=== PATIENT | male | born 1970 | race Caucasian/White ===

== ENCOUNTER 2019-12-27 11:19 | Inpatient (IN) ==
--- NOTE | 2019-12-27 11:49 | EKG Report ---
Test Performed on : 12/27/2019 11:42:22 AM Test Reason : chest pain Blood Pressure : / mmHG Vent. Rate : 091 BPM Atrial Rate : 091 BPM P-R Int : 118 ms QRS Dur : 092 ms QT Int : 354 ms P-R-T Axes : 052 050 029 degrees QTc Int : 435 ms Sinus rhythm. with marked sinus arrhythmia. with occasional premature ventricular complexes. Otherwise normal ECG When compared with ECG of 26-DEC-2019 18:05, (Unconfirmed) premature ventricular complexes. are now present Unconfirmed Result
[2019-12-27 12:14] LABS: BASO# 0.02 X1000 (0.0-0.2); BASO% 0.1 % (0.0-0.8); HEMATOCRIT 46.6 % (42.0-52.0); HEMOGLOBIN 16.1 g/dL (14.0-18.0); LYMPH# 0.45 X1000 (1.2-3.4); LYMPH% 1.7 % (20.5-51.1); MCH 32.5 PG (27-31); MCHC 34.5 g/dL (33-37); MONO% 6.8 % (1.7-9.3); MPV 9.6 FL (7.4-10.4); PLT 359 X1000 (130-400); RBC 4.96 XMIL (4.7-6.1); RDW 12.9 % (11.5-14.5); WBC 26.61 X1000 (4.8-10.8)
[2019-12-27 12:36] LABS: AGAP 19; ALBUMIN 3.6 g/dL (3.5-5.0); ALKALINE PHOSPHATASE 114 U/L (32-122); AMYLASE 310 U/L (20-200); BUN 17 mg/dL (8-22); CALCIUM 8.8 mg/dL (8.8-10.2); CHLORIDE 96 mmol/L (98-107); COSMO 272; CREATININE 1.2 mg/dL (0.7-1.2); ESTIMATED GFR > 60; GLUCOSE 146 mg/dL (70-104); GOT 34 U/L (10-34); GPT 25 U/L (10-44); POTASSIUM 3.7 mmol/L (3.5-5.1); SODIUM 134 mmol/L (136-145); TCO2 19 mmol/L (25-35); TOTAL BILIRUBIN 0.58 mg/dL (0.20-1.00); TOTAL PROTEIN 7.1 g/dL (6.3-8.3)
[2019-12-27 12:43] LABS: LIPASE 584 U/L (13-60)
[2019-12-27] MEDS ORDERED: ZOFRAN IV ONE (13:47)
[2019-12-27] MEDS ORDERED: MORPHINE IV ONE (13:47)
[2019-12-27] MEDS ORDERED: NS 500 ML IV ONE (13:47)
[2019-12-27] MEDS ORDERED: NS 1,000 ML IV ONE ×2 (13:49→16:29)
[2019-12-27] MEDS ORDERED: MAGNESIUM SULFATE 2 GM/S.W.I. 2 GM/50 ML IVPB IV ONE (15:09)
--- NOTE | 2019-12-27 15:37 | Diag Imaging Result Doc PS360 ---
EXAM: CT ABDOMEN/PELVIS W/O CONTRAST INDICATION: pancreatitis TECHNIQUE: This exam was performed using automated exposure control, adjustment of mA or kV according to patient size, and/or use of iterative reconstruction technique. COMPARISON: None. FINDINGS: The gallbladder appears normal. The common bile duct is somewhat prominent measuring up to 9 mm in diameter. There is no intrahepatic biliary dilatation. The liver is unremarkable. Spleen appears normal. There is extensive inflammatory stranding surrounding the entire pancreas consistent with acute pancreatitis. Nonloculated free fluid is seen around the pancreas. No definite pancreatic abscess is identified given the limitations of an unenhanced CT. The adrenal glands are unremarkable. There are multiple nonobstructing intrarenal stones bilaterally. There is no hydronephrosis. There are no ureteral stones. There is a 2.3 cm nodule at the lower pole of the right kidney that is slightly lower in density than the adjacent renal parenchyma. Although nonspecific on an unenhanced study, this probably represents a cyst containing blood products or proteinaceous debris. The urinary bladder is nondistended. Urinary bladder wall appears somewhat thickened. This is probably due to underdistention. The appendix is normal. There are a few diverticula associated with the hepatic flexure of the colon. There is no evidence of diverticulitis. There is no focal bowel wall thickening and no bowel obstruction identified. No free abdominal gas is identified. IMPRESSION: 1.Acute pancreatitis as described. 2.Normal-appearing gallbladder but possible mild prominence of the common bile duct. 3.Other incidental/nonacute findings detailed above. Electronically signed by Ran Batista 12/27/2019 3:35 PM
[2019-12-27] MEDS: DEMEROL IV PRN ×2 (16:13→20:23)
[2019-12-27] MEDS: ZOSYN 3.375 GM in NS 50 ML IV SCH ×2 (16:17→20:24)
--- NOTE | 2019-12-27 16:19 | Diag Imaging Result Doc PS360 ---
EXAM: CHEST-1 VIEW HISTORY: Sepsis Protocol TECHNIQUE: Single view COMPARISON: 12/26/2019 FINDINGS: The lungs are well expanded. The heart is not enlarged. The vessels are not distended. There are no infiltrates. No effusion identified. IMPRESSION: No pneumonia. Electronically signed by Deondre Vazquez 12/27/2019 4:17 PM
[2019-12-27] MEDS ORDERED: NS 1,000 ML IV SCH (17:42)
[2019-12-27 18:49] LABS: URINE SOURCE CLEAN CATCH
--- NOTE | 2019-12-27 18:51 | Diag Imaging Result Doc PS360 ---
EXAM: US GB < RUQ (LIMITED) HISTORY: possible CBD dilation on CT scan TECHNIQUE: Right upper quadrant ultrasound COMPARISON: CT performed earlier FINDINGS: The aorta, inferior vena cava, and pancreas are all predominantly obscured. There is fatty infiltration of the liver. No ascites in the right upper quadrant. Normal gallbladder. No stones. The common bile duct measures 10 mm. Normal right kidney. No hydronephrosis. IMPRESSION: 1.Fatty infiltration of the liver 2.Dilated common bile duct Electronically signed by Denodre Vazquez 12/27/2019 6:48 PM
[2019-12-27 18:52] LABS: BILIRUBIN URINE NEGATIVE (NEGATIVE); BLOOD URINE NEGATIVE (NEGATIVE); COLOR YELLOW; GLUCOSE URINE NEGATIVE (NEGATIVE); KETONE URINE NEGATIVE (NEGATIVE); LEUKOCYTES URINE NEGATIVE (NEGATIVE); NITRITE URINE NEGATIVE (NEGATIVE); PROTEIN URINE TRACE mg/dL (NEGATIVE); SP GRAVITY URINE 1.024; TURBIDITY URINE HAZY (CLEAR); UR EPITHELIAL CELLS <10 /HPF (<10); URINE BACTERIA NEGATIVE /HPF; URINE RBC <10 /HPF (<10); URINE WBC <10 /HPF (<10); UROBILINOGEN URINE NORMAL (NORMAL)
--- NOTE | 2019-12-27 19:40 | HISTORY AND PHYSICAL ---
ADDENDUM: I have seen and examined Mr. Batista today. Mr. Batista referred to have come to the emergency room yesterday because of some epigastric chest discomfort. He was evaluated and sent home. He said on his way home, he went to [employer] and bought something from there. Since then, after he had the first bite, he started just throwing up it away. He still went home, threw up multiple times, but then went to sleep, woke up this morning with excruciating epigastric generalized abdominal pain. Came to the emergency room where he was evaluated and found on imaging studies to have acute inflammation of the pancreas, with lipase and amylase also elevated. We have been consulted for admission for acute pancreatitis. PHYSICAL EXAMINATION: VITAL SIGNS: Blood pressure is 128/80, pulse is 100, respirations 18, temperature 97.9 degrees. GENERAL: Mr. Batista is a 49-year-old male. He is in bed in no distress. HEENT: Mucosa is pink and moist. Anicteric. Acyanotic. NECK: Supple. He does have some residual tremors upon extension of his hands. ABDOMEN: Exam is remarkably tender everywhere, most specifically to the epigastrium and the left upper quadrant. There is no rebound, but there is some guarding. Bowel sounds are present. EXTREMITIES: No pedal edema. BUSINESS TECHNOLOGY ANALYST: Patient is awake, alert, and oriented. LABORATORY DATA: Has been reviewed. He has leukocytosis. He also has mild high gap metabolic acidosis. Sodium is slightly low. Magnesium is 1. Amylase and lipase are elevated as well as plasma lactate; however, AST and ALT are within normal range. The patient's CT scan of the abdomen and pelvis shows an acute pancreatitis, normal appearing gallbladder; however, there is a mention of prominence of the CBD. ASSESSMENT: 1. Acute pancreatitis, presumably alcohol induced; however, the CAT scan also mention of prominence of the common bile duct. Unsure if patient might have had a transient passage of a gallbladder stone that could have caused this. His liver enzymes, however, are within normal range, so I think this is probably more of alcohol related disease than gallbladder. He is getting a limited right upper quadrant ultrasound. We will also get his triglyceride levels to rule out other possible etiologies. 2. Alcohol use and abuse. Patient has been counseled. 3. Hypomagnesemia. We will replace. 4. Leukocytosis. I think this is most likely reactive to the ongoing acute pancreatitis. 5. Mild high anion gap metabolic acidosis, most likely from lactic acidosis. We will continue intravenous hydration. Please refer to the details of the History and Physical that has been dictated by the INFORMATION SECURITY ANALYST. I have discussed the plan with her. I have also discussed my findings and plan with Mr. Batista today. cc: Inocente Jimenez MD
--- NOTE | 2019-12-27 19:59 | HISTORY AND PHYSICAL ---
PRIMARY CARE PROVIDER: Dr. Méndez. CHIEF COMPLAINT: Epigastric pain, nausea, vomiting. HISTORY OF PRESENT ILLNESS: Mr. Batitsa is a 49-year-old male with a past medical history of hypertension and fibromyalgia. He reports yesterday he came to the ED with chest pain. It subsequently subsided. He was ruled out for AL. After leaving here, he went and ate at the [employer]. After that, he started having nausea and vomiting. He threw up a dozen times or more. He immediately started having again this pain in his epigastric region that has been unrelenting. He reports a low-grade fever and chills, and inability to urinate. Initial workup in the ED did show an elevated amylase and lipase as well as a white count of 26 and a positive lactate. Follow up with the abdomen and pelvis CT does show acute pancreatitis with mild prominence of the common bile duct and hypomagnesemia. He is going to be aggressively IV hydrated. He was given a dose of IV Rocephin and initiated on antiemetics and pain regimen, made NPO. He will be started on lactated Ringer's. We have ordered an ultrasound of the right upper quadrant and a consult for GI. He is currently taking hydrochlorothiazide and ASHLEY inhibitor. He also reports he drinks about a 6 six-pack, he would estimate about 3 weeks out of a month. His last drink was about a week and a half ago. PAST MEDICAL HISTORY: Per HPI. PAST SURGICAL HISTORY: Left carpal tunnel. SOCIAL HISTORY: He does have a significant other that he has lived with for quite some time. They are pretty much common-law . He does have an 18-year-old son. He has 4 small dogs. He does dip a half can of chew tobacco a day. He does drink about a 6 pack of beer per day about 3 weeks out of the month if he had to estimate. He reports his last drink was the weekend before last. 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 No illicit drugs. REVIEW OF SYSTEMS: Twelve-point review of systems completely negative except for those mentioned in HPI. ALLERGIES: Mobic causes swelling. HOME MEDICATIONS: 1. Norvasc 10 mg p.o. daily. 2. Lotensin 40 mg p.o. daily. 3. Hydrochlorothiazide 25 mg p.o. daily. 4. [place] 10 one each p.o. t.i.d. p.r.n. 5. Desyrel 50 mg p.o. at bedtime. PHYSICAL EXAMINATION: VITAL SIGNS: Temperature is 97.9 degrees, heart rate 111, respirations 20, blood pressure 157/93, O2 is 93% on room air. GENERAL: Mr. Batista is a 49-year-old male who is sitting up on the stretcher. He does appear to be in some discomfort, but in no acute distress. HEENT: Atraumatic, normocephalic. PERRL. NECK: Supple. Trachea midline. CARDIOVASCULAR: S1, S2 appreciated. No murmurs, gallops, or rubs noted. He is tachycardic. RESPIRATORY: Lung sounds clear bilaterally. ABDOMEN: Somewhat distended, tender all 4 quadrants. Positive bowel sounds. EXTREMITIES: Lower extremities negative for edema. NEUROLOGIC: No focal deficits noted. DIAGNOSTIC DATA: Abdomen and pelvis CT: Acute pancreatitis, mild prominence of the common bile duct. LABORATORY DATA: White count 26, hemoglobin and hematocrit 16 and 46, platelet count is 359,000. Sodium 134, potassium 3.7, BUN 17, creatinine 1.2 blood glucose is 146, magnesium 1. Troponin less than 6. C-reactive protein 0.78. Amylase is 310, lipase is 584. Lactate was 3.4. ASSESSMENT AND PLAN: 1. Acute pancreatitis, probably secondary to alcohol use. However, patient is on a ASHLEY inhibitor and hydrochlorothiazide. Will have to continue with aggressive IV hydration with lactated Ringer's, pain control and antiemetics. Consult Gastroenterology. We will get a right upper quadrant ultrasound given that he did have a prominence of his common bile duct, to rule out any gallbladder issues. 2. High gap metabolic acidosis. We will continue with lactated Ringer's. 3. Hypomagnesemia 1.0. He is given 2 g of magnesium. We will recheck his magnesium and continue to replenish p.r.n. 4. Leukocytosis, possibly reactive. CT does not show any necrosis of the pancreas. However, he was having some fever and chills. We did initiate antibiotics. He did have a positive lactate. However, he is severely dehydrated. We will continue with aggressive IV hydration. Stop antibiotics when appropriate. 5. Alcohol use. Given his acute pancreatitis, we will need to continue discussions about abstinence. 6. Hypertension, stable. 7. Fibromyalgia. We will continue with p.r.n. Demerol. Further recommendation to follow physician evaluation, laboratory and diagnostic data. Dictated by DIONE Martin for Inocente Jimenez MD cc: MD Ken Patel MD Michael Kelso, MD
[2019-12-27] MEDS: ZOFRAN IV PRN (20:23)
[2019-12-27] MEDS: DILAUDID IV PRN (23:28)
[2019-12-28] MEDS: LR 1,000 ML IV SCH ×8 (02:01→22:13)
[2019-12-28] MEDS: DILAUDID IV PRN ×7 (02:47→21:37)
[2019-12-28] MEDS: ZOSYN 3.375 GM in NS 50 ML IV SCH (02:47)
[2019-12-28] MEDS: ZOFRAN IV PRN (02:47)
[2019-12-28 08:04] LABS: HEMATOCRIT 43.7 % (42.0-52.0); HEMOGLOBIN 14.9 g/dL (14.0-18.0); IMM GRAN# 0.05 X1000 (0.0-0.04); IMM GRAN% 0.3 % (0.0-0.5); LYMPH# 0.44 X1000 (1.2-3.4); LYMPH% 2.3 % (20.5-51.1); MCH 32.5 PG (27-31); MCHC 34.1 g/dL (33-37); MCV 95.2 FL (81-99); MONO# 1.31 X1000 (0.11-0.59); MONO% 6.7 % (1.7-9.3); MPV 9.8 FL (7.4-10.4); NEUT# 17.63 X1000 (1.4-6.5); NEUT% 90.7 % (42.2-75.2); PLT 261 X1000 (130-400); RBC 4.59 XMIL (4.7-6.1); RDW 12.9 % (11.5-14.5); WBC 19.43 X1000 (4.8-10.8)
[2019-12-28 08:36] LABS: AGAP 13; ALB/GLOB RATIO 0.9; ALBUMIN 3.2 g/dL (3.5-5.0); ALKALINE PHOSPHATASE 103 U/L (32-122); BUN 19 mg/dL (8-22); CHLORIDE 102 mmol/L (98-107); COSMO 277; CREATININE 1.2 mg/dL (0.7-1.2); ESTIMATED GFR > 60; GLUCOSE 112 mg/dL (70-104); GOT 32 U/L (10-34); GPT 20 U/L (10-44); MAGNESIUM 1.7 mg/dL (1.5-2.7); POTASSIUM 3.7 mmol/L (3.5-5.1); SODIUM 137 mmol/L (136-145); TCO2 22 mmol/L (25-35); TOTAL BILIRUBIN 1.34 mg/dL (0.20-1.00); TOTAL PROTEIN 6.6 g/dL (6.3-8.3)
[2019-12-28 08:37] LABS: CHOLESTEROL 122 mg/dL (0-200); HDL 80 mg/dL (35-55); LDL 30 mg/dL; TRIGLYCERIDES 60 mg/dL (39-160); VLDL 12 mg/dL
[2019-12-28 10:13] LABS: BANDS 1 % (0-1); LYMPHS 2 % (21-51); MONO 2 % (1-9); SEGS 95 % (42-75)
--- NOTE | 2019-12-28 11:42 | GASTROENTEROLOGY CONSULTATION ---
DATE: 12/28/2019 REASON FOR CONSULT: Acute pancreatitis. HISTORY OF PRESENT ILLNESS: Mr. Batista is a 49-year-old, male with a past medical history of hypertension, fibromyalgia, history of alcohol abuse and chewing tobacco. The patient mentioned that he was here in the hospital on 12/26/2019 with complaints of chest pain and with feeling of pressure in the chest. He came to the ER and then was sent back. The patient went to [facility] and he said after he started eating, he immediately started to have nausea, vomiting, abdominal pain, and he threw up everything that he had eaten, and his pain was around the epigastric area, which he mentioned that it was almost 10/10 with excruciating pain. The patient has denied noticing any blood in his vomit. He mentioned having fever, chills, shortness of breath and some sweating with hot flashes. The patient does have extensive history of drinking 6 packs of beer every 2 to 3 days and sometimes he drinks Fireball liquor, which he said it is bourbon. The patient also has a history of fibromyalgia and is on [place] 10 mg 1 tablet 3 times a day as needed. PAST MEDICAL HISTORY: Hypertension, fibromyalgia. PAST SURGICAL HISTORY: Left carpal tunnel. ALLERGIES: The patient is allergic to meloxicam. SOCIAL HISTORY: The patient is single, lives with his girlfriend for the last 15 years. He has 1 kid. He works 3rd shift at [employer]. He drinks 6 packs of beer every 2 to 3 days and he also drinks Fireball liquor, which he mentioned that it is nothing but bourbon. The patient denied smoking, but he says that he dips half a can of tobacco a day. He has denied having any illicit drugs. FAMILY HISTORY: His dad had cancer and mom had heart problems. HOME MEDICATIONS: 1. Lotensin 40 mg p.o. daily. 2. Hydrocodone/acetaminophen 1 tablet 3 times a day as needed. 3. Trazodone 50 mg p.o. at bedtime. 4. Amlodipine 10 mg p.o. daily. 5. Hydrochlorothiazide 25 mg p.o. daily. REVIEW OF SYSTEMS: As per HPI. Otherwise, 12 point review of system is negative. PHYSICAL EXAMINATION: Vital Signs: Temperature 98.4 degrees, pulse 115, respirations 22, blood pressure 156/98, oxygen saturation is 95% on room air. The patient's weight is 175 pounds. BMI is 29.1 kg/m2. General: He is alert, oriented x3. Answering questions appropriately and in no acute distress. HEENT: Pale conjunctivae. No icterus. PERRL. Neck: Supple. Lungs: Clear to auscultation. Cardiovascular: Patient is tachycardic and tachypneic. Abdomen: Soft. Tender in the epigastric area. Nondistended. Active bowel sounds heard in all 4 quadrants. Extremities: No clubbing, no cyanosis, no edema. Pedal pulses 2+ present bilaterally. Neurologic: Alert and oriented x3. Nonfocal. Cranial nerves 2-12 grossly intact. LABORATORY DATA: WBCs are 19.43, RBC is 4.59, hemoglobin is 14.9, hematocrit is 43.7, platelet count is 261,000. Sodium 137, potassium 3.7, chloride 102, carbon dioxide 22, anion gap is 13, BUN 19, creatinine is 1.2, glucose is 112, calcium is 8.0, magnesium is 1.7, total bilirubin 1.34, AST 32, ALT 20, alkaline phosphatase 103, albumin is 3.2, triglycerides are 60, cholesterol is 122, LDL is 30, VLDL is 12, HDL is 80, plasma lactate is 2.7. His urinalysis has shown that he has got trace of protein. IMAGING: Abdominal ultrasound showed fatty infiltration of the liver, dilated common bile duct. Chest x-ray has shown no pneumonia. Abdomen and pelvis CT has shown acute pancreatitis, normal appearing gallbladder, but possible mild prominence of common bile duct. IMPRESSION AND PLAN: 1. Pancreatitis. 2. Leukocytosis. 3. Abdominal pain. 4. Epigastric pain. 5. Nausea and vomiting. 6. Alcohol abuse. 7. Tobacco abuse. PLAN: Mr. Batista is a 49-year-old, male with a history of hypertension and fibromyalgia. GI has been consulted for his acute pancreatitis. The patient's abdomen and pelvis CT has shown that he has got acute pancreatitis and his abdominal ultrasound showed that he has fatty infiltration of the liver and dilated common bile duct. The patient is currently on antiemetics, Zofran for his nausea and vomiting. He is receiving IV fluid, lactated Ringer's at 200 mL/h, and for his pain, he is on Dilaudid 1 mg every 3 hours p.r.n. as needed by PCP. We will continue to provide supportive care to the patient, continue him with his IV fluids and antiemetics, and follow the plan of care per PCP. This plan was discussed with Dr. Link. Please call us for any further questions or concerns. Dictated by DIONE March for Stiven Link MD [facility]
--- NOTE | 2019-12-28 19:59 | PROGRESS NOTE ---
DATE: 12/28/2019 SUBJECTIVE: I have seen and examined Mr. Batista today. Mr. Batista refers to be feeling a whole lot better. He said his abdominal pain is now about 4/10. OBJECTIVE: Vital signs: Blood pressure is 160/98, pulse of 114, respiration is 18, temperature 98.5 degrees. General: Mr. Batista is a 48-year-old gentleman. He is in bed no distress. Mucosa is pink and moist. Anicteric. Acyanotic. Neck: Supple. Chest: Good air entry bilaterally. There were no crepitations, no rhonchi. Cardiovascular: Regular rate and rhythm. No murmurs, no rubs, no gallops Gastrointestinal: Abdomen is soft, minimally tender in the mid epigastrium but no rebound, no guarding. Bowel sounds present. Extremities: No pedal edema. CORPORATE SALES MANAGER: Patient is awake, alert, and oriented. There is no focal deficit. LABORATORY DATA: Has been reviewed. Patient WBC is down to 19.43, hemoglobin is 14.9, platelet count of 261,000. Chemistry is also reviewed. C-reactive protein is 95.30. ASSESSMENT: 1. Acute pancreatitis presumably alcohol induced. The patient's abdominal pain seems to be getting better. We will continue with pain management, IV fluids. We will start the patient on ice chips today. 2. Alcohol use and abuse. The patient has been counseled. He is on p.r.n. medication for possible withdrawal. 3. Electrolyte abnormality. We will continue to replace. 4. Reactive leukocytosis. 5. Gap acidosis, improved. 6. Fatty liver disease, most likely from alcohol use and abuse. Patient has been notified. 7. Dilated common bile duct. The patient's CBD measures about 10 mm on the right upper quadrant ultrasound. There was no stone identified. Unsure if the patient might have passed a little stone that could have caused his acute pancreatitis. GI has been consulted. cc: Inocente Jimenez MD
[2019-12-28] MEDS: PEPCID IV SCH (22:13)
[2019-12-28] MEDS: LABETALOL IV PRN (23:13)
[2019-12-29] MEDS: DILAUDID IV PRN ×8 (00:22→23:10)
[2019-12-29] MEDS: LR 1,000 ML IV SCH ×4 (02:47→21:37)
[2019-12-29] MEDS: PEPCID IV SCH ×2 (08:51→21:19)
[2019-12-29] MEDS: SODIUM CHLORIDE 0.9% INJ SCH (08:51)
[2019-12-29] MEDS: LABETALOL IV PRN (13:44)
[2019-12-29] MEDS: COREG PO SCH ×2 (15:53→21:19)
[2019-12-29 17:20] LABS: BASO# 0.02 X1000 (0.0-0.2); BASO% 0.1 % (0.0-0.8); EOS# 0.03 X1000 (0.0-0.7); EOS% 0.2 % (0.0-10.0); HEMATOCRIT 41.2 % (42.0-52.0); HEMOGLOBIN 13.8 g/dL (14.0-18.0); IMM GRAN# 0.04 X1000 (0.0-0.04); IMM GRAN% 0.3 % (0.0-0.5); LYMPH# 0.77 X1000 (1.2-3.4); LYMPH% 4.9 % (20.5-51.1); MCH 32.3 PG (27-31); MCHC 33.5 g/dL (33-37); MCV 96.5 FL (81-99); MONO# 1.21 X1000 (0.11-0.59); MONO% 7.7 % (1.7-9.3); MPV 9.8 FL (7.4-10.4); NEUT# 13.69 X1000 (1.4-6.5); NEUT% 86.8 % (42.2-75.2); PLT 191 X1000 (130-400); RBC 4.27 XMIL (4.7-6.1); RDW 12.5 % (11.5-14.5); WBC 15.76 X1000 (4.8-10.8)
[2019-12-29 17:30] LABS: LARGE PLATELETS OCCASIONAL; LYMPHS 2 % (21-51); MONO 5 % (1-9); SEGS 93 % (42-75)
[2019-12-29 17:32] LABS: AGAP 11; ALB/GLOB RATIO 0.9; ALBUMIN 2.9 g/dL (3.5-5.0); ALKALINE PHOSPHATASE 79 U/L (32-122); AMYLASE 48 U/L (20-200); BUN 17 mg/dL (8-22); CALCIUM 8.4 mg/dL (8.8-10.2); CHLORIDE 97 mmol/L (98-107); COSMO 270; CREATININE 0.9 mg/dL (0.7-1.2); ESTIMATED GFR > 60; GLUCOSE 105 mg/dL (70-104); GOT 17 U/L (10-34); GPT 13 U/L (10-44); LIPASE 52 U/L (13-60); POTASSIUM 4.4 mmol/L (3.5-5.1); SODIUM 134 mmol/L (136-145); TCO2 26 mmol/L (25-35); TOTAL BILIRUBIN 0.82 mg/dL (0.20-1.00); TOTAL PROTEIN 6.1 g/dL (6.3-8.3)
[2019-12-29] MEDS: M.V.I.-12 10 ML, FOLIC ACID 1 MG, MAGNESIUM SULFATE 1 GM, THIAMINE 100 MG in NS 1,000 ML IV SCH (17:32)
--- NOTE | 2019-12-29 19:32 | PROGRESS NOTE ---
DATE: 12/29/2019 SUBJECTIVE: This morning, Mr. Batista referred to be doing fairly okay. He said his abdominal pain has significantly subsided and that he was able to tolerate the ice chips. OBJECTIVE: Current vital signs: Blood pressure is 166/103, pulse of 103, respirations 13, temperature 99 degrees. General: Mr. Batista is a 49-year-old, gentleman. He is in bed, in no distress. Mucosa is pink and moist. Anicteric, acyanotic. Neck: Supple. Chest: Good air entry bilaterally. There are no crepitations, no rhonchi. Cardiovascular: Regular rate and rhythm. Gastrointestinal: Abdomen is soft, minimally distended, and tender in the mid epigastrium, but no rebound, no guarding. Bowel sounds present. Extremities: No pedal edema. Central nervous system: Patient is awake, alert, and oriented. There is no focal deficit. LABORATORY DATA: None for today. Patient's I's and O's, he is about 6000 positive balance. ASSESSMENT/PLAN: 1. Acute alcohol-induced pancreatitis. The patient continues to be on conservative management. He has been able to tolerate ice chips. We will start him on clear liquids today. 2. Alcohol use and abuse prior to hospitalization. Patient has been counseled. 3. Electrolyte abnormalities. We will continue replacement. 4. Reactive leukocytosis. 5. Fatty liver disease due to alcohol use and abuse. 6. Dilated CBD noted on both CT scan and ultrasound. Will get an MRCP on Tuesday. In general, I think Mr. Batista is doing well. He feels bloated and swollen. I think part of it is because of the fluid. We are going to drop the rate to just 75 mL per hour. He is going to be started on a clear liquid diet today. I will start him back on his blood pressure medications. cc: Inocente Jimenez MD
[2019-12-29] MEDS: DESYREL PO SCH (21:19)
--- NOTE | 2019-12-30 02:32 | GASTROENTEROLOGY PROGRESS NOTE ---
DATE: 12/29/2019 SUBJECTIVE: Patient resting in bed. He is feeling better. He denies any nausea or vomiting. He denies any fevers, rigors, chills. He is able to eat 25% of his meal today. He had 1 bowel movement reported today. PHYSICAL EXAMINATION: Vital signs: Temperature of 99.1 degrees, pulse rate 102, respiratory rate 14, blood pressure 150/98, saturating 96% on room air. Body weight of 175 pounds. BMI 29.1 kg/m2. General: Moderately nourished, lying in bed, in no acute distress. HEENT: No pallor, no icterus. Pupils equal, reactive to light. Neck: Supple. Abdomen: Soft, mild discomfort. No rebound or guarding. Extremities: No cyanosis, clubbing. Neuro: Alert, awake, oriented. LABS: Hemoglobin and hematocrit is 13.8 and 41.2, white count of 15.76, platelet count 191,000. Sodium 130, potassium 4.4, chloride 97, bicarb 20, anion gap 11, BUN of 17, creatinine 0.9. Glucose of 105, calcium is 8.4, total bilirubin is 0.82, AST 17, ALT 13, alkaline phosphatase 79, total protein 6, albumin of 2.9. Amylase of 48, lipase of 52 today, which has improved from 2 days ago. Blood culture x2 are negative from 12/27/2019. IMPRESSION: 1. Alcoholic pancreatitis. 2. Alcohol abuse. 3. Leukocytosis. 4. Electrolyte imbalance. 5. Fatty liver disease secondary to alcohol abuse. 6. Dilated common bile duct measuring about 10 mm on ultrasound, but no stones identified. RECOMMENDATIONS: The patient is feeling better. He will continue on conservative management. He is on clear liquid diet. We will continue IV fluids. We will keep him on IV pain control, IV antiemetics. He will continue on multivitamin once daily. We will start on banana bag once daily. He is on Ringer's lactate 70 mL/h for now. He is on Pepcid b.i.d. for GI prophylaxis. The patient is scheduled for MRI, MRCP per the primary team for 12/31/2019. The patient was counseled about quitting alcohol completely. We are going to need to watch him closely for alcohol withdrawal. We will gradually advance his diet to a low-fat diet. The patient will follow up in the clinic in 2 weeks of discharge. The above plans were discussed with the patient and all questions answered. We will sign off at this time. We will be available for any questions. cc: MD Inocente Mena MD Gregory S. Cheatham, MD
[2019-12-30] MEDS: DILAUDID IV PRN ×7 (02:33→21:50)
[2019-12-30] MEDS: LR 1,000 ML IV SCH ×3 (04:11→23:54)
[2019-12-30 07:31] LABS: BASO# 0.01 X1000 (0.0-0.2); BASO% 0.1 % (0.0-0.8); EOS# 0.11 X1000 (0.0-0.7); EOS% 0.7 % (0.0-10.0); HEMATOCRIT 39.2 % (42.0-52.0); HEMOGLOBIN 13.2 g/dL (14.0-18.0); IMM GRAN# 0.02 X1000 (0.0-0.04); IMM GRAN% 0.1 % (0.0-0.5); LYMPH# 0.78 X1000 (1.2-3.4); LYMPH% 4.9 % (20.5-51.1); MCH 32.3 PG (27-31); MCHC 33.7 g/dL (33-37); MCV 95.8 FL (81-99); MONO# 1.26 X1000 (0.11-0.59); MONO% 7.9 % (1.7-9.3); MPV 9.9 FL (7.4-10.4); NEUT# 13.75 X1000 (1.4-6.5); NEUT% 86.3 % (42.2-75.2); PLT 207 X1000 (130-400); RBC 4.09 XMIL (4.7-6.1); RDW 12.1 % (11.5-14.5); WBC 15.93 X1000 (4.8-10.8)
[2019-12-30 08:12] LABS: AGAP 11; ALB/GLOB RATIO 0.9; ALBUMIN 2.7 g/dL (3.5-5.0); ALKALINE PHOSPHATASE 79 U/L (32-122); BUN 16 mg/dL (8-22); C REACTIVE PROT QUANT 95.12 mg/L (0.00-5.00); CALCIUM 8.3 mg/dL (8.8-10.2); CHLORIDE 95 mmol/L (98-107); COSMO 262; CREATININE 0.7 mg/dL (0.7-1.2); ESTIMATED GFR > 60; GLUCOSE 74 mg/dL (70-104); GOT 16 U/L (10-34); GPT 10 U/L (10-44); POTASSIUM 3.7 mmol/L (3.5-5.1); SODIUM 131 mmol/L (136-145); TCO2 25 mmol/L (25-35); TOTAL BILIRUBIN 0.79 mg/dL (0.20-1.00); TOTAL PROTEIN 5.8 g/dL (6.3-8.3)
[2019-12-30] MEDS: COREG PO SCH ×2 (08:44→20:23)
[2019-12-30] MEDS: NORVASC PO SCH (08:44)
[2019-12-30] MEDS: PEPCID IV SCH ×2 (08:45→20:22)
[2019-12-30] MEDS: SODIUM CHLORIDE 0.9% INJ SCH (08:45)
--- NOTE | 2019-12-30 16:57 | PROGRESS NOTE ---
DATE: 12/30/2019 SUBJECTIVE: This morning Mr. Batista refers to be feeling a lot better. He still has some residual pain. He said he ate all his breakfast, but at the time he was about to eat his lunch, he was feeling some pain. OBJECTIVE: Vital signs: Blood pressure is 164/88, pulse of 88, respirations 16, temperature 98.4 degrees. General: Mr. Batista is a 49-year-old male. He is in bed in no distress. Mucosa is pink and moist. Anicteric. Acyanotic. Neck: Supple. Chest: Good air entry bilaterally. There were no crepitations, no rhonchi. Cardiovascular: Regular rate and rhythm. No murmurs, no rubs, no gallops. GI: Abdomen is soft, minimally tender around the mid epigastrium. No guarding, no rebound. Bowel sounds present. Extremities: No pedal edema. SUPERVISOR VENEER: Patient is awake, alert, oriented. No focal deficit. LABORATORY DATA: The laboratory data has been reviewed. WBC is still slightly elevated at 15.93, hemoglobin is 13.2, platelet count of 207,000. Chemistry is reviewed. Sodium is 131, C-reactive protein is 95.12. Blood cultures have been negative. ASSESSMENT: 1. Presumed alcohol-induced acute pancreatitis. Will continue with conservative management. 2. Alcohol use and abuse prior to hospitalization. Patient is counseled. 3. Reactive leukocytosis, improving. 4. Fatty liver disease on imaging due to alcohol use and abuse. Patient has been notified and counseled. 5. Dilated common bile duct noted on both CT scan and ultrasound. MRCP has been ordered for tomorrow. 6. Hypertension. The patient has been started back on amlodipine and Coreg. cc: Inocente Jimenez MD
[2019-12-30] MEDS: M.V.I.-12 10 ML, FOLIC ACID 1 MG, MAGNESIUM SULFATE 1 GM, THIAMINE 100 MG in NS 1,000 ML IV SCH (17:17)
[2019-12-30] MEDS: DESYREL PO SCH (20:23)
--- NOTE | 2019-12-30 21:43 | GASTROENTEROLOGY PROGRESS NOTE ---
DATE: 12/30/2019 SUBJECTIVE: Resting in bed. He is feeling better. He had some abdominal discomfort this morning after eating breakfast. He is feeling better now. He is scheduled for MRCP tomorrow. PHYSICAL EXAMINATION: Vital signs: Temperature of 98.4 degrees, pulse of 88, respiratory 16, blood pressure 160/88, saturating 90% on room air. Body weight of 175 pounds. BMI 29.1 kg/m2. General: He is moderately built, moderately nourished, lying in bed in no acute distress. HEENT: No pallor. No icterus. Pupils equal, reactive to light. Neck: Supple. Abdomen: Discomfort in the epigastrium. No rebound. No guarding. Extremities: No cyanosis or clubbing. Neurologic: Alert, awake, oriented. LABS: Hemoglobin 13.2, hematocrit 39.2, white count of 15.93, platelet count of 207,000. Sodium 139, potassium 3.7, chloride 95, bicarb 25, anion gap 11, BUN of 16, creatinine 0.7, glucose 74, calcium 8.3, total bilirubin is 0.7. AST 16, ALT 10, alkaline phosphatase 79, total protein is 5.8, albumin of 2.7. CRP is 95.12. His amylase yesterday was 48, lipase 52 and blood cultures negative at 48 hours x2. IMPRESSION AND PLAN: 1. Alcoholic pancreatitis. 2. Alcohol abuse. 3. Leukocytosis 4. Electrolyte imbalance. 5. Fatty liver disease secondary to alcohol abuse. 6. Dilated common bile duct measuring 10 mm on ultrasound; no stones identified. RECOMMENDATIONS: Patient is feeling better. We will continue on IV fluids, clear liquid diet and IV pain control. IV antiemetics. He will continue on banana bag once daily. We will watch for alcohol withdrawal. He is on Pepcid for GI prophylaxis. We will schedule MRI MRCP tomorrow morning by the primary team. Patient counseled to quit alcohol completely. The patient can slowly advance his diet as tolerated. The patient will follow up in the clinic in 2 to 3 weeks after discharge. Discussed all of the above with the patient and all questions answered. Will sign off at this time. Please call with any further questions. cc: MD Ken Mena MD Raphael K. Quansah, MD
[2019-12-31] MEDS: DILAUDID IV PRN ×7 (01:06→22:45)
[2019-12-31] MEDS: PEPCID IV SCH ×3 (01:12→21:09)
[2019-12-31] MEDS: LOVENOX SUBQ SCH (08:00)
[2019-12-31] MEDS: NORVASC PO SCH (08:00)
[2019-12-31] MEDS: COREG PO SCH ×2 (08:00→21:09)
[2019-12-31 08:07] LABS: AGAP 14; ALBUMIN 2.8 g/dL (3.5-5.0); BUN 11 mg/dL (8-22); CALCIUM 8.2 mg/dL (8.8-10.2); CHLORIDE 97 mmol/L (98-107); COSMO 266; CREATININE 0.7 mg/dL (0.7-1.2); ESTIMATED GFR > 60; GLUCOSE 68 mg/dL (70-104); PHOSPHORUS 2.4 mg/dL (2.7-4.5); POTASSIUM 3.6 mmol/L (3.5-5.1); SODIUM 134 mmol/L (136-145); TCO2 23 mmol/L (25-35)
[2019-12-31] MEDS: SODIUM CHLORIDE 0.9% INJ SCH (09:59)
--- NOTE | 2019-12-31 14:18 | Diag Imaging Result Doc PS360 ---
MRI MRCP (ABD W/O CONTRAST) - 12/31/2019 INDICATION: Dilated CBD/ Acute pancreatitis TECHNIQUE: COMPARISON: CT and ultrasound from 12/27/2019 FINDINGS: There is trace perihepatic ascites. There is also some trace edema about the retroperitoneum and pancreas. This is compatible with acute pancreatitis. No drainable fluid collections. There is a stable benign-appearing right renal cyst. The biliary duct system is all normal. The main pancreatic duct is very difficult to visualize. No definite pancreatic duct dilation. Other abdominal organs are all normal. IMPRESSION: 1. Extensive pancreatitis. Trace perihepatic ascites. 2. The main pancreatic duct is not visible. Certainly not dilated. 3. The biliary collecting system is normal. Electronically signed by Johnathan Chavis 12/31/2019 2:15 PM
[2019-12-31] MEDS: MIRALAX PO SCH (15:08)
--- NOTE | 2019-12-31 15:13 | PROGRESS NOTE ---
DATE: 12/31/2019 SUBJECTIVE: Today, Mr. Batista referred to be doing a lot better. He said he still has some pain, maybe about 4/10, but he has been able to be tolerating his clears, and it does not hurt that much when he eats. He just went for his MRCP. OBJECTIVE: Vital Signs: Blood pressure is 144/88, pulse of 90, respirations 18, temperature is 98.6 degrees, the patient is saturating 97% on room air. General: Mr. Batista is a 49-year-old, male. He is in bed. No distress. HEENT: Mucosa is pink and moist. Anicteric. Acyanotic. Neck: Supple. Chest: Clear to auscultation. There were no crepitations, no rhonchi. Cardiovascular: Regular rate and rhythm. No murmurs, no rubs, no gallops. GI: Abdomen is soft. It is minimally distended and minimally tender around the epigastrium. Bowel sounds were present, slightly hypoactive. Extremities: No pedal edema. LASER ENGINEER: The patient is awake, alert, and oriented. There is no focal deficit. LABORATORY DATA: The chemistry this morning looks fairly unremarkable. Phosphorus was slightly low, which has been replaced. C-reactive protein is down to 67.80, which is trending down. IMAGING: The patient just had MRCP done, which shows extensive pancreatitis with trace perihepatic ascites. The main pancreatic duct was not visible, but the biliary collecting system is normal. ASSESSMENT: 1. Acute alcohol-induced pancreatitis. The patient continues to be gradually improving. Abdominal pain is better controlled. We are going to continue with the conservative management. Gastroenterology is on board. 2. Alcohol use and abuse prior to hospitalization. The patient has been counseled. 3. Leukocytosis, presumably reactive. 4. Fatty liver disease on imaging due to alcohol use and abuse. 5. Dilated common bile duct on both CT scan and ultrasound. An magnetic resonance cholangiopancreatography this morning seems to suggest that the biliary system is normal. 6. Hypertension, controlled. 7. Constipation. The patient has not had any bowel movement since admission. We are going to put him on a bowel regimen. In general, I think Mr. Batista is doing well. Abdominal pain is progressively getting better. His C-reactive protein is also trending down. We are going to advance his diet to gastrointestinal soft today, and see if he is able to tolerate. If he does, I think he will potentially be okay to be discharged tomorrow. The patient is being seen by Gastroenterology as well. We appreciate their input. cc: Inocente Jimenez MD
[2019-12-31] MEDS: M.V.I.-12 10 ML, FOLIC ACID 1 MG, MAGNESIUM SULFATE 1 GM, THIAMINE 100 MG in NS 1,000 ML IV SCH (17:04)
[2019-12-31] MEDS: DESYREL PO SCH (21:09)
[2020-01-01] MEDS: DILAUDID IV PRN ×6 (03:30→20:52)
[2020-01-01] MEDS: NORVASC PO SCH (08:16)
[2020-01-01] MEDS: SODIUM CHLORIDE 0.9% INJ SCH ×2 (08:16→20:52)
[2020-01-01] MEDS: PEPCID IV SCH ×3 (08:16→20:52)
[2020-01-01] MEDS: MIRALAX PO SCH (08:16)
[2020-01-01] MEDS: LOVENOX SUBQ SCH (08:17)
[2020-01-01] MEDS: COREG PO SCH ×2 (08:17→20:52)
[2020-01-01] MEDS: M.V.I.-12 10 ML, FOLIC ACID 1 MG, MAGNESIUM SULFATE 1 GM, THIAMINE 100 MG in NS 1,000 ML IV SCH (16:51)
[2020-01-01] MEDS: DESYREL PO SCH (20:52)
[2020-01-01] MEDS: LR 1,000 ML IV SCH (23:36)
--- NOTE | 2020-01-02 00:14 | PROGRESS NOTE ---
DATE: 01/01/2020 SUBJECTIVE: The patient has no major complaints. He is resting comfortably. OBJECTIVE: Blood pressure 148/95, heart rate 93, respiratory rate 22, temperature 98.8 degrees. Cardiovascular: Regular rate and rhythm.Pulmonary: Bilateral breath sounds, clear to auscultation. GI: Soft, nontender, nondistended. Bowel sounds positive. LABORATORY DATA: White count: I do not have any new data today. CRP is down, about even, 69. ASSESSMENT AND PLAN: 1. Acute pancreatitis, presumably due to alcohol. Magnetic resonance cholangiopancreatography does not show biliary obstruction, he just has pancreatitis. 2. Alcohol abuse and use. We will continue to follow. Advised on cessation. 3. Dilated common bile duct. Again, magnetic resonance cholangiopancreatography is negative. We will continue to monitor. 4. Disposition: We will continue to manage, slowly advance diet and follow. cc: Francisco Joseph MD
[2020-01-02] MEDS: DILAUDID IV PRN ×7 (01:06→21:57)
[2020-01-02 07:24] LABS: BASO# 0.02 X1000 (0.0-0.2); BASO% 0.1 % (0.0-0.8); EOS# 0.14 X1000 (0.0-0.7); HEMATOCRIT 38.4 % (42.0-52.0); IMM GRAN# 0.05 X1000 (0.0-0.04); IMM GRAN% 0.4 % (0.0-0.5); LYMPH# 1.17 X1000 (1.2-3.4); LYMPH% 8.5 % (20.5-51.1); MCH 32.1 PG (27-31); MCHC 33.9 g/dL (33-37); MCV 94.8 FL (81-99); MONO# 1.85 X1000 (0.11-0.59); MONO% 13.4 % (1.7-9.3); MPV 9.8 FL (7.4-10.4); NEUT% 76.6 % (42.2-75.2); PLT 288 X1000 (130-400); RBC 4.05 XMIL (4.7-6.1); RDW 12.2 % (11.5-14.5); WBC 13.83 X1000 (4.8-10.8)
[2020-01-02 08:14] LABS: AGAP 11; ALB/GLOB RATIO 0.8; ALBUMIN 2.9 g/dL (3.5-5.0); ALKALINE PHOSPHATASE 70 U/L (32-122); BUN 4 mg/dL (8-22); C REACTIVE PROT QUANT 54.41 mg/L (0.00-5.00); CALCIUM 8.5 mg/dL (8.8-10.2); CHLORIDE 97 mmol/L (98-107); COSMO 265; CREATININE 0.7 mg/dL (0.7-1.2); ESTIMATED GFR > 60; GLUCOSE 104 mg/dL (70-104); GOT 16 U/L (10-34); GPT 10 U/L (10-44); LIPASE 86 U/L (13-60); SODIUM 134 mmol/L (136-145); TCO2 26 mmol/L (25-35); TOTAL BILIRUBIN 0.44 mg/dL (0.20-1.00); TOTAL PROTEIN 6.4 g/dL (6.3-8.3)
[2020-01-02] MEDS: COREG PO SCH ×2 (08:25→21:57)
[2020-01-02] MEDS: NORVASC PO SCH (08:25)
[2020-01-02] MEDS: PEPCID IV SCH ×2 (08:25→10:28)
[2020-01-02] MEDS: SODIUM CHLORIDE 0.9% INJ SCH (08:25)
[2020-01-02] MEDS: LOVENOX SUBQ SCH (08:25)
[2020-01-02] MEDS: LR 1,000 ML IV SCH ×2 (08:35→17:43)
[2020-01-02] MEDS: MIRALAX PO SCH (08:36)
[2020-01-02] MEDS ORDERED: KLOR-CON PO ONE (12:07)
[2020-01-02] MEDS: M.V.I.-12 10 ML, FOLIC ACID 1 MG, MAGNESIUM SULFATE 1 GM, THIAMINE 100 MG in NS 1,000 ML IV SCH (17:42)
--- NOTE | 2020-01-02 21:18 | PROGRESS NOTE ---
DATE: 01/02/2020 SUBJECTIVE: Patient has no major complaints. He says his pain is better. It is a bit worse than usual. OBJECTIVE: Vital Signs: Blood pressure is 139/90, heart rate of 86, respiratory rate 18, temperature 98.6 degrees, 98% on room air. Cardiovascular: Regular rate and rhythm. Pulmonary: Bilateral breath sounds clear to auscultation. GI: Was soft, nontender, nondistended. Bowel sounds are positive. Extremity: No clubbing or cyanosis. Lymphatic Exam: No peripheral edema. Neurological: Nonfocal. Lipase bumped up a little bit today, 86 when it was normal, CRP down to 54, potassium of 3, white count of 13. PROBLEM LIST: 1. Acute pancreatitis secondary to alcohol abuse. We will continue treatments. He is tolerating diet pretty well. I think if he stabilizes, should be able to go home soon. 2. Alcohol abuse with concern over withdrawal. He seems to be doing better. Advised on cessation. DISPOSITION: I anticipate if stable tomorrow, we will discharge. cc: Francisco Joseph MD
[2020-01-02] MEDS: DESYREL PO SCH (21:57)
[2020-01-03] MEDS: LR 1,000 ML IV SCH ×3 (00:38→17:06)
[2020-01-03] MEDS: DILAUDID IV PRN ×4 (02:04→13:17)
[2020-01-03] MEDS ORDERED: PRILOSEC PO SCH (07:00)
[2020-01-03 08:23] LABS: AGAP 10; ALB/GLOB RATIO 0.8; ALBUMIN 2.7 g/dL (3.5-5.0); ALKALINE PHOSPHATASE 72 U/L (32-122); BUN 4 mg/dL (8-22); CALCIUM 8.3 mg/dL (8.8-10.2); CHLORIDE 99 mmol/L (98-107); COSMO 265; CREATININE 0.7 mg/dL (0.7-1.2); ESTIMATED GFR > 60; GLUCOSE 95 mg/dL (70-104); GOT 18 U/L (10-34); GPT 12 U/L (10-44); LIPASE 77 U/L (13-60); POTASSIUM 3.2 mmol/L (3.5-5.1); SODIUM 134 mmol/L (136-145); TCO2 25 mmol/L (25-35); TOTAL BILIRUBIN 0.55 mg/dL (0.20-1.00)
[2020-01-03] MEDS: LOVENOX SUBQ SCH (09:12)
[2020-01-03] MEDS: COREG PO SCH (09:12)
[2020-01-03] MEDS: MIRALAX PO SCH (09:13)
[2020-01-03] MEDS: NORVASC PO SCH (09:13)
[2020-01-03] MEDS ORDERED: KLOR-CON PO ONE (11:22)
[2020-01-03 15:40] VITALS: BP 148/84
[2020-01-03] MEDS ORDERED: M.V.I.-12 10 ML, FOLIC ACID 1 MG, MAGNESIUM SULFATE 1 GM, THIAMINE 100 MG in NS 1,000 ML IV SCH (18:15)
--- NOTE | 2020-01-04 13:29 | DISCHARGE SUMMARY ---
ADMISSION DATE: 12/27/2019 DISCHARGE DATE: 01/03/2020 DISCHARGE DIAGNOSES: 1. Acute pancreatitis due to alcohol. 2. Alcohol abuse. 3. Chronic pain disorder. CONSULTANTS: Dr. Link/Dr. Michaud. BRIEF HISTORY AND HOSPITAL COURSE: Briefly, this is a 49-year-old male with a history of alcohol use. He drinks about a pint a day. CT scan showed pancreatitis. There was a concern over a possible passed stone, but there was no evidence of gallstones. He did have a dilated common bile duct. GI was consulted. He was maintained n.p.o. He was placed on fluids, pain control, nausea control. His initial lipase was 584, which is not through the roof and that improved with time. His diet was slowly advanced. He underwent an MRCP just to evaluate for the dilated common bile duct, but that was pretty much normal. He did have significant pancreatitis. He was tolerating food without difficulty. Pain was still apparent but improved. His lipase was down to 77 and he was felt stable for discharge. DISCHARGE MEDICATIONS: He is on trazodone 50 at night, amlodipine 10, [place], benazepril 40 daily and hydrochlorothiazide. Now hydrochlorothiazide can also cause pancreatitis. His blood pressure here was pretty stable. I would probably recommend to stop hydrochlorothiazide at Dr. Méndez's discretion. He can continue his other medications. FOLLOWUP: He will need to follow up with Dr. Méndez in 1 to [address] Link in 4 to 6 weeks just to make sure, and he was advised to stop alcohol, NSAIDs. TIME SPENT: A 32 minute discharge. cc: MD Francisco Britt MD
== END 2020-01-03 17:25 | disposition home or self-care (01) | DRG 439 ==
LOC: ED 11:19 → SUATTDRO 11:20 → 4N 11:20
PROVIDERS: ATTEND Internal Medicine